=== PATIENT | female | born 1995 | race American Indian/Alaskan Native ===

== ENCOUNTER 2019-03-07 12:21 | Emergency (ER) | payer MEDICAID ==
[2019-03-07 12:46] VITALS: BP 100/60
[2019-03-07] MEDS ORDERED: FLUORESCEIN 1 MG STRIP OP ONE (15:15)
[2019-03-07] MEDS ORDERED: TETRACAINE 0.5% OPHTH SOLN 4ML OU ONE (15:16)
--- NOTE | 2019-03-07 16:17 | Emergency Department Report ---
HPI - General Chief Complaint: Eye Problems Time Seen by Provider: 03/07/19 14:49 - HPI HPI: 24-year-old Yolanda female presents to the emergency department with a complaint of a 3 day of progressively worsening right eye pain/irritation, some redness and blurry vision. Patient says that she thought it may have been due to her contact lens so she took it out on Wednesday, but then tried to put it back in the next day, Wednesday, 3 days ago. She denies any discharge, drainage, matting, crusting. She denies any other known trauma. She does not have an development executive. She has not taken anything for her symptoms prior to arrival today. ED Past Medical Hx - Past Medical History Previous Medical History?: No Hx Hypertension: No Hx Congestive Heart Failure: No Hx Diabetes: No Hx Deep Vein Thrombosis: No Hx Renal Disease: No Hx Sickle Cell Disease: No Hx Seizures: No Hx Asthma: No Hx COPD: No Hx HIV: No - Surgical History Past Surgical History?: No - Social History Smoking Status: Never Smoker Substance Use Type: Alcohol - Medications Home Medications: Home Medications Medication Instructions Recorded Confirmed Last Taken Type HYDROcodone/APAP 5-325 [[place] 1 each PO Q6HR PRN #12 tablet 10/27/14 Unknown Rx 5/325] Ibuprofen [Motrin 400 MG tab] 400 mg PO Q8H PRN #30 tablet 10/27/14 Unknown Rx Sulfamethoxazole/Trimethoprim 1 each PO Q12H #20 tablet 10/27/14 Unknown Rx [Bactrim Ds] cephALEXin [Keflex] 500 mg PO Q6H #40 capsule 10/27/14 Unknown Rx Gentamicin 0.3% Ophth Oint 0.5 inch OD TID #1 tube 03/07/19 Unknown Rx ED Review of Systems ROS: Stated complaint: R EYE IRRITATION Other details as noted in HPI Comment: All other systems reviewed and negative Constitutional: denies: chills, fever Eyes: eye pain, vision change Neurological: denies: headache, weakness Physical Exam - Physical Exam Vital Signs: Vital Signs 03/07/19 12:44 Temperature 98.3 F Pulse Rate 75 Respiratory 16 Rate Blood Pressure 100/60 O2 Sat by Pulse 100 Oximetry Physical Exam: GENERAL: The patient is well-developed well-nourished. HENT: Normocephalic. Atraumatic. Patient has moist mucous membranes. EYES: Extraocular motions are intact. Pupils equal reactive to light bilaterally. Visual acuity: OD 20/70, OS 20/50, both eyes 20/50. There is a small area of fluorescein uptake concerning for a corneal abrasion or small ulcer at the 5 o'clock position of the right eye. NECK: Supple. Trachea is midline. ABDOMEN: There is no abdominal distention. SKIN: Skin is warm and dry. NEURO: The patient is awake, alert, and oriented. The patient is cooperative. The patient has no focal neurologic deficits. Normal speech. MUSCULOSKELETAL: There is no tenderness or deformity. There is no evidence of acute injury. ED Course Vital Signs 03/07/19 12:44 Temperature 98.3 F Pulse Rate 75 Respiratory 16 Rate Blood Pressure 100/60 O2 Sat by Pulse 100 Oximetry ED Medical Decision Making - Medical Decision Making Patient presents to the emergency department with some right eye pain and blurry vision. There is no conjunctivae injection. Even without fluorescein staining there appears to be a small area of haziness to the right cornea at the 5 o'clock position. She was given tetracaine and fluorescein and there was some fluorescein uptake to this area showing a small corneal abrasion versus ulcer. Given the patient has a recent history of contact lens use, she will be treated with an antibiotic with pseudomonal coverage. Her visual acuity is poor but it is not much different in the affected right eye as compared to the left eye or with both eyes and she is not currently wearing her glasses or contacts. She has been given a prescription for the antibiotics and referrals for ophthalmology. She will return to the ER with any worsening of her symptoms or any acute distress. - Differential Diagnosis corneal abrasion, corneal ulcer, iritis, conjunctivitis Critical Care Time: No Critical care attestation.: If time is entered above; I have spent that time in minutes in the direct care of this critically ill patient, excluding procedure time. ED Disposition Clinical Impression: Corneal abrasion Qualifiers: Encounter type: initial encounter Laterality: right Qualified Code(s): S05.01XA - Injury of conjunctiva and corneal abrasion without foreign body, right eye, initial encounter Disposition: DC-01 TO HOME OR SELFCARE Is pt being admited?: No Condition: Stable Instructions: Corneal Abrasion (ED) Additional Instructions: Please follow-up with an development executive as soon as possible. Return to the emergency Department with any worsening of your symptoms or any acute distress. Prescriptions: Gentamicin 0.3% Ophth Oint 0.5 inch OD TID #1 tube Referrals: YOLA KUMAR MD [Staff Physician] - [facility] [Provider Group] - [facility] Forms: Work/School Release Form(ED) Time of Disposition: 16:21
== END 2019-03-07 16:28 | disposition home or self-care (01) ==
LOC: ED 12:21
DX: S05.01XA Injury of conjunctiva and corneal abrasion without foreign body, right eye, initial encounter (principal); Z79.1 Long term (current) use of non-steroidal anti-inflammatories (NSAID); Z79.899 Other long term (current) drug therapy; X58.XXXA Exposure to other specified factors, initial encounter; Y93.89 Activity, other specified; Y92.89 Other specified places as the place of occurrence of the external cause; Y99.8 Other external cause status
CPT/HCPCS: 99283